=== PATIENT | female | born 1985 | race African-American/Black ===

== ENCOUNTER → 2018-05-28 10:13 | Outpatient (POV) | payer BC, SELFPAY | PROVIDERS: Visit Provider Physician Assistant | DX: Z00.00 Encounter for general adult medical examination without abnormal findings (principal) ==

== ENCOUNTER → 2019-06-07 11:39 | Outpatient (CLI) | payer BC, SELFPAY | PROVIDERS: Visit Provider Nurse Practitioner Obstetrics & Gynecology | DX: N76.4 Abscess of vulva (principal) | CPT/HCPCS: 87070; 87077; 87186; 87205 ==

== ENCOUNTER 2020-11-01 11:51 | Emergency (ER) | payer BC, SELFPAY ==
[2020-11-01 12:00] VITALS: BP 154/98; PULSE 96; RESP 19; TEMP 37; O2SAT 100; BMI 48.5
--- NOTE | 2020-11-01 12:22 | HMH.EDUTC ---
[facility] – [place] Disposition Clinical Impression: Abdominal pain Qualifiers: Abdominal location: unspecified location Qualified Code(s): R10.9 - Unspecified abdominal pain Disposition: Still a Patient Condition on Discharge: Good Referrals: Emily Mosher PA [Primary Care Provider] - Time of Disposition: 12:42 Medical Decision Making - Ron Inquiry Pt receiving controlled substance: No Ron was queried for this patient: No Vital Signs: 11/01/20 12:00 Temperature 98.6 F Temperature Source Oral Pulse Rate [Right Brachial] 96 H Respiratory Rate 19 Blood Pressure [Right Arm] 154/98 H Blood Pressure Mean [Right Arm] 116 Blood Pressure Source [Right Arm] Automatic Cuff Blood Pressure Position [Right Arm] Sitting 02 Sat by Pulse Oximetry 100 Oxygen Delivery Method Room Air - Lab Data Lab results reviewed: Yes: I reviewed the patient's lab results. Medical Decision Narrative: Patient complaining of consistent achy like pain in left upper abdomen area that has continued since she eat yesterday evening and was uncomfortable as she was sitting on exam table Denies pain with palpation states feels like it is deep in there recommended transfer to the Ed for further evaluation and testing and patient agreed, Patient denies history of pain like this before, called Ed spoke with Nikki Coronel RN and patient was moved to room 10 for further evaluation [facility] [place] HPI - General Stated complaint: pain in back and left abdominal area Time Seen by Provider: 11/01/20 12:28 Mode of Arrival: Ambulatory Source of Information: Patient Limitations: No Limitations Description of Symptoms (Recalled from Triage Doc. by RN): PATIENT C/O PAIN IN UPPER LEFT SIDE AND LOWER BACK WITH NAUSEA AFTER EATING SINCE LAST NIGHT. HEENT Symptoms (Recalled from RN notes): No Resp Symptoms (Recalled from RN notes): No Skin Symptoms (Recalled from RN notes): No MS Symptoms (Recalled from RN notes): No Functional Status (Recalled from RN notes): WNL - History of Present Illness Provider Complaint: Patient states that she was eating last night and started having pain in her left upper quad and has continued to have pain and nausea since. State that it is a gurgling like pain and dull ache and is worse when she tries to eat or drink something. States that she was also having achy like pain in her lower back and not sure if they are related and noticed her urine looked dark and wanted to get checked for UTI also State that she has not had pain like this in the past in her abdomen - Related Data Home Medications Medication Instructions Recorded Confirmed levonorgestrel 20 mcg/24 hours (6 INTRAUTERI 11/06/19 09/14/20 yrs) 52 mg intrauterine device Doxycycline Hyclate [Vibramycin 100 mg PO BID 11/01/20 11/01/20 100mg Capsule] Phentermine HCl 37.5 mg PO DAILY 11/01/20 11/01/20 Allergies Allergy/AdvReac Type Severity Reaction Status Date / Time No Known Allergies Allergy Verified 09/14/20 11:17 - Worker's Comp Is this a Worker's Comp case?: No [facility] History - Hepatitis A Screen Drug use history?: No High risk sexual behaviors?: No History of sexually transmitted infection?: No Currently employed?: No Childcare worker?: No Do you have indoor plumbing?: Yes Do you have electricity?: Yes Attestation statement:: This patient has been screened for Hepatitis A risk factors. I have reviewed the patient's past medical history: Yes Laterality Cases: Bilateral: Myringotomy (Ear Tubes), Tonsillectomy Other Surgeries: Yes: No Previous Surgery, Amputation: No Fractures: No - Social History Smoking Status: Current every day smoker Tobacco Type: cigarettes # Packs/Day (cigarettes): 5 Alcohol Intake: never Alcohol Intake Frequency:: a few times a month Substance Use Type: denies use Occupational Status: other Housing: house Household Members: children Family Hx:: Coronary Artery Disease, Hyperlipidemia, Hypertension ROS [place]
--- NOTE | 2020-11-01 12:25 | PC.NURSE ---
PATIENT SENT TO ER PER CASSIE OROZCO APRN FOR FURTHER EVALUATION. REPORTY GIVEN BY Niles OROZCO APRN TO Kyra BOUDREAUX RN
[2020-11-01 12:26] LABS: Apearance,Urine Clear (Clear); Bilirubin,Urine Negative (Negative); Blood, Urine Negative (Negative); Color,Urine Yellow (Yellow); Glucose,Urine (UA) Negative (Negative); Ketones,Urine Negative (Negative); Protein,Urine Negative (Negative); Specific Gravity, Urine 1.025 (1.005-1.030)
[2020-11-01 12:27] LABS: UTC Leukocyte Esterase,Urine Negative (Negative); UTC Nitrate,Urine Negative (Negative); Urobilinogen,Urine 1 EU/dl (0.2)
[2020-11-01 12:38] VITALS: BP 167/96; PULSE 95; RESP 18; TEMP 36.8; O2SAT 99; BMI 48.5
--- NOTE | 2020-11-01 12:46 | HMH.EDGENADL ---
ED Disposition Clinical Impression: Left upper quadrant abdominal pain Disposition: Home, Self-Care Condition on Discharge: Good Instructions: DI for Acute Abdominal Pain Additional Instructions: Pepcid as prescribed. Additional instructions for ABDOMINAL PAIN: See your physician as soon as possible for further evaluation. Return immediately if worsening abdominal pain, vomiting, shortness of breath, fever, vomiting of blood or abdominal distention. Prescriptions: Famotidine [Pepcid 20mg Tablet] 20 mg PO BID 5 Days #10 tab Transmission Status: Pending to [facility] #[id number] Referrals: Emily Mosher PA [Primary Care Provider] - - Critical Care Critical Care Time: No Attestation: On 11/01/20, the high probability of a clinically significant, sudden or life threatening deterioration of the following system(s) required my full and direct attention, intervention and personal management. The time I documented below is in addition to time spent performing reported procedures but includes the following listed in this critical care notation. Medical Decision Making - Ron Inquiry Pt receiving controlled substance: No Vital Signs: 11/01/20 12:00 11/01/20 12:38 11/01/20 12:52 Temperature 98.6 F 98.2 F Temperature Source Oral Oral Pulse Rate [Right Brachial] 96 H 95 H Respiratory Rate 19 18 Blood Pressure [Right Arm] 154/98 H 167/96 H 151/98 H Blood Pressure Mean [Right Arm] 116 119 115 Blood Pressure Source [Right Arm] Automatic Cuff Automatic Cuff Automatic Cuff Blood Pressure Position [Right Arm] Sitting Sitting Sitting 02 Sat by Pulse Oximetry 100 99 99 Oxygen Delivery Method Room Air Room Air Room Air 11/01/20 13:00 Temperature Temperature Source Pulse Rate [Right Brachial] 72 Respiratory Rate Blood Pressure [Right Arm] 154/89 H Blood Pressure Mean [Right Arm] 110 Blood Pressure Source [Right Arm] Automatic Cuff Blood Pressure Position [Right Arm] Sitting 02 Sat by Pulse Oximetry 99 Oxygen Delivery Method Room Air - Lab Data Lab Results 11/01/20 12:03: Urine Color Yellow, Urine Appearance Clear, Urine pH 8.0, Ur Specific [place] 1.025, Urine Protein Negative, Urine Glucose (UA) Negative, Urine Ketones Negative, Urine Blood Negative, Urine Nitrate Negative, Urine Bilirubin Negative, Urine Urobilinogen 1, Ur Leukocyte Esterase Negative 11/01/20 12:14: Urine Color Yellow, Urine Appearance Sl cloudy, Urine pH 8.0, Ur Specific [place] 1.020, Urine Protein Negative, Urine Glucose (UA) Negative, Urine Ketones Negative, Urine Blood Negative, Urine Nitrate Negative, Urine Bilirubin Negative, Urine Urobilinogen 0.2, Ur Leukocyte Esterase Negative, Amorphous Sediment 2+, Urine Bacteria 3+, Urine Mucus 1+ 11/01/20 12:14: Urine HCG, Qual Negative 11/01/20 12:49: WBC 6.1, RBC 4.74, Hgb 14.4, Hct 44.4, MCV 93.6, MCH 30.3, MCHC 32.3, RDW 13.4, Plt Count 232, MPV 8.7, Neut % (Auto) 57.4, Lymph % (Auto) 32.7, Mobile % (Auto) 5.7, Eos % (Auto) 3.3, Baso % (Auto) 0.8, Neut # (Auto) 3.5, Lymph # (Auto) 2.0, Mobile # (Auto) 0.4, Eos # (Auto) 0.2, Baso # (Auto) 0.1 11/01/20 12:49: Sodium 137, Potassium 4.3, Chloride 104, Carbon Dioxide 31 H, Anion Gap 6.3, BUN 12, Creatinine 0.90, Estimated Creat Clear 85, Estimated GFR 71, Est GFR ( Amer) 86, Glucose 118 H, Calcium 10.1, Total Bilirubin 0.4, AST 31, ALT 23, Alkaline Phosphatase 72, Total Protein 8.1, Albumin 4.2, Globulin 3.9 H, Albumin/Globulin Ratio 1.1, Amylase 64, Lipase 71 Result diagrams: 11/01/20 12:49 11/01/20 12:49 Orders (Tests/Meds): ED MEDICATIONS Generic Name Dose Route Start Last Admin Trade Name Freq PRN Reason Stop Dose Admin Sodium Chloride 1,000 mls @ 999 mls/hr 11/01/20 13:00 11/01/20 12:56 Sod Chlor 0.9% 1000ml Bag IV 11/01/20 14:00 999 mls/hr .Q1H1M RADHA Administration Discontinued Medications Generic Name Dose Route Start Last Admin Trade Name Freq PRN Reason Stop Dose Admin Iopamidol 75 ml 0
--- NOTE | 2020-11-01 12:50 | CT_ITS ---
PROCEDURE: CT ABDOMEN PELVIS W CON CLINICAL INDICATION: IV contrast Left upper quadrant pain after eating COMPARISON: No exams were available for comparison TECHNIQUE: IV Contrast: 75ML OPTIRAY 350 Oral Contrast none given Axial images obtained with sagittal and coronal reformats. All CT scans at the facility use one or more dose reduction, viz: automated exposure control, ma/kV adjustment per patient size (including targeted exams where dose is matched to indication, i.e. head), or iterative reconstruction technique. FINDINGS: Lower thorax: The lower lung bartholomew are clear and there is no pleural fluid. ABDOMEN: Liver: The liver is normal size and there are no focal lesions. There are no dilated intrahepatic biliary ducts. Gallbladder: The gallbladder is partially contracted, there are no definite gallstones seen. Pancreas: No masses or peripancreatic fluid collections. Spleen: unremarkable Adrenals: unremarkable Kidneys/ureters: The kidneys are normal in size and show symmetrical function both appearing normal. ABDOMEN & PELVIS: Stomach bowel: The stomach and duodenal C-loop are normal. The small bowel is normal. There is moderate scattered stool and gas seen throughout the colon. There are scattered diverticuli in the transverse and descending colon. There is no evidence of diverticulitis. Peritoneum: No abnormal fluid collections. No obvious inflammatory changes. No free air. Lymph nodes: No enlarged lymph nodes apparent. Vasculature: No evidence of abdominal aortic aneurysm. No retroperitoneal hemorrhage evident. Bones: No acute fracture PELVIS: Reproductive: The uterus is upper limits normal in size with an IUD in place. There is a small 2-3 mm hypodense lesion left adnexa likely a small ovarian cyst. The right ovary is grossly normal. There is no free fluid in the pelvis. Bladder: Partially decompressed, no definite stones seen. Appendix: Unremarkable. No distention or periappendiceal phlegmonous change. IMPRESSION: Mild scattered diverticulosis distal transverse and descending colon without evidence of diverticulitis, borderline enlarged uterus with IUD in place, small left ovarian cyst noted Dictated by: Dr. Amador Banerjee MD 11/01/2020 19:42 Dr. Amador Banerjee MD in [place] 11/01/2020 19:42
[2020-11-01 12:52] VITALS: BP 151/98; O2SAT 99
[2020-11-01 12:57] LABS: Microscopic, Urine URINE MICROSCOPIC (MICROSCOPIC)
[2020-11-01 12:59] LABS: Appearance,Urine SL CLOUDY (Clear); Bilirubin,Urine Negative (Negative); Blood, Urine Negative (Negative); Color,Urine YELLOW (Yellow); Glucose,Urine (UA) Negative (Negative); Ketones,Urine Negative (Negative); Leukocyte Esterase,Urine Negative (Negative); Nitrate,Urine Negative (Negative); Protein,Urine Negative (Negative); Urobilinogen,Urine 0.2 EU/dl (0.2)
[2020-11-01 13:00] VITALS: BP 154/89; PULSE 72; O2SAT 99
[2020-11-01 13:00] LABS: Urine Pregnancy, HCG Qual. Negative (Negative)
[2020-11-01 13:09] LABS: Chloride 104 mmol/L (98-107); Potassium 4.3 mmoL/L (3.5-5.1); Sodium 137 mmol/L (136-145)
[2020-11-01 13:11] LABS: Amylase 64 U/L (30-110)
[2020-11-01 13:12] LABS: Alanine Aminotransferase 23 U/L (12-78); Albumin Level 4.2 g/dl (3.5-5.0); Albumin/Globulin Ratio 1.1 (1.1-1.8); Alkaline Phosphatase 72 U/L (38-126); Anion Gap 6.3 mEq/L (5-15); Aspartate Amino Transferase 31 U/L (14-36); Bilirubin,Total 0.4 mg/dl (0.2-1.3); Blood Urea Nitrogen 12 mg/dl (7-17); Calcium 10.1 mg/dl (8.4-10.2); Carbon Dioxide 31 mmol/L (22.0-30.0); Creatinine Clearance Estimated 85 mL/min (50-200); Estimated Glomerular Filt Rate 71 ml/min (>60); GFR (African American) 86 ML/MIN (>60); Globulin 3.9 g/dL (1.3-3.2); Glucose 118 mg/dl (74-100); Lipase 71 U/L (23-300); Total Protein,Serum 8.1 g/dl (6.3-8.2)
[2020-11-01 13:23] LABS: Basophils # 0.1 K/mm3 (0-0.2); Basophils % 0.8 % (0.1-2.0); Eosinophils # 0.2 K/mm3 (0.0-0.4); Eosinophils % 3.3 % (0.1-12.0); Hematocrit 44.4 % (37.0-47.0); Hemoglobin 14.4 g/dL (12.2-16.2); Lymphocytes % 32.7 % (10-50); Mean Corpuscular HGB Conc 32.3 g/dL (31.8-35.4); Mean Corpuscular Hemoglobin 30.3 pg (27.0-31.2); Mean Corpuscular Volume 93.6 fl (81-99); Mean Platelet Volume 8.7 fl (7.4-10.4); Monocytes # 0.4 K/mm3 (0.1-1.0); Monocytes % 5.7 % (1.7-9.3); Neutrophils # 3.5 K/mm3 (1.8-7.8); Neutrophils % 57.4 % (37.0-80.0); Platelet Count 232 K/mm3 (142-424); Red Blood Count 4.74 M/mm3 (4.20-5.40); Red Cell Distribution Width 13.4 % (11.5-17.5); White Blood Count 6.1 K/mm3 (4.8-10.8)
[2020-11-01 13:53] LABS: Amorphous Sediment,Urine 2+ /lpf; Bacteria,Urine 3+ /lpf; Mucus,Urine 1+ /lpf
[2020-11-01 14:14] VITALS: BP 154/89; PULSE 72; RESP 18; TEMP 36.8; O2SAT 99
== END 2020-11-01 14:14 | disposition home or self-care (01) ==
LOC: UTC 11:54 → ER 12:35
PROVIDERS: Nurse Practitioner; Emergency Provider Emergency Medicine; PCP Physician Assistant
DX: R10.12 Left upper quadrant pain (principal); K57.51 Diverticulosis of both small and large intestine without perforation or abscess with bleeding; F17.210 Nicotine dependence, cigarettes, uncomplicated
CPT/HCPCS: 74177; 80053; 81001; 81003; 81025; 82150; 83690; 85025; 87086; 96365; 99283; Q9967

== ENCOUNTER → 2021-04-27 09:15 | Outpatient (POV) | payer BC, SELFPAY | PROVIDERS: Visit Provider Nurse Practitioner Family | DX: Z00.00 Encounter for general adult medical examination without abnormal findings (principal) ==

== ENCOUNTER 2021-05-14 09:02 | Emergency (ER) | payer BC, SELFPAY ==
[2021-05-14 09:02] VITALS: BP 136/94; PULSE 96; RESP 18; TEMP 36.3; O2SAT 100; BMI 42.3
--- NOTE | 2021-05-14 09:43 | HMH.EDUTC ---
[facility] [place] Disposition Clinical Impression: Exposure to COVID-19 virus, Viral syndrome Disposition: Home, Self-Care Condition on Discharge: Good Instructions: DI for COVID-19 (Suspected or Confirmed ), Preventing the Spread of Coronavirus Discharge Instructions Additional Instructions: Drink plenty of fluids. Take tylenol for pain or fever. Return if you begin to have difficulty breathing. Follow up with your regular doctor. GO TO THE ER FOR ANY WORSENING SYMPTOMS Quarantine until you know the results of your covid-19 test. If it is positive, the health department should call you and give you further instructions about your length of Quarantine and other things. Notify your school or workplace of your results and follow their instructions regarding return to work/school. Prescriptions: Brompheniramine/Pseudoephed/Dm [Bromfed Dm Cough Syrup] 5 ml PO Q6HP PRN #240 ml PRN Reason: Cough Transmission Status: Received by [facility] #[id number] Referrals: Emily Mosher PA [Primary Care Provider] - Forms: Work/School Release Time of Disposition: 09:48 Medical Decision Making - Medical Records Medical records reviewed: No: I reviewed the patient's medical records. - Ron Inquiry Pt receiving controlled substance: No Vital Signs: 05/14/21 09:02 05/14/21 10:01 Temperature 97.4 F L 97.4 F L Temperature Source Temporal Artery Scan Pulse Rate 96 H Pulse Rate [Left Radial] 96 H Respiratory Rate 18 18 Blood Pressure 136/94 H Blood Pressure [Right Arm] 136/94 H Blood Pressure Mean [Right Arm] 108 02 Sat by Pulse Oximetry 100 Oxygen Delivery Method Room Air Room Air Orders (Tests/Meds): ORDERS Category Date Time Status Covid-19 Nasal PCR ([facility]) Routine Lab 05/14/21 09:24 Received [facility] [place] HPI - General Stated complaint: covid test/symptoms Time Seen by Provider: 05/14/21 09:43 - History of Present Illness Provider Complaint: She states that she has been exposed to covid-19 last weekend at her work. She states that over the past 2 days she has began to have a runny nose. She denies any fever/chills/body aches. - Related Data Home Medications Medication Instructions Recorded Confirmed Doxycycline Hyclate [Vibramycin 100 mg PO BID 11/01/20 03/24/21 100mg Capsule] Previous Rx's Medication Instructions Recorded epinastine 0.05 % eye drops 1 drp OPHTHALMIC Q12H #5 ml 02/16/21 ibuprofen 200 mg tablet 200 mg PO ONCE #4 tab 03/23/21 phentermine 37.5 mg tablet 37.5 mg PO DAILY #30 tab 03/24/21 Brompheniramine/Pseudoephed/Dm 5 ml PO Q6HP PRN #240 ml 05/14/21 [Bromfed Dm Cough Syrup] Allergies Allergy/AdvReac Type Severity Reaction Status Date / Time No Known Allergies Allergy Verified 03/24/21 08:58 [facility] History - Hepatitis A Screen Attestation statement:: This patient has been screened for Hepatitis A risk factors. I have reviewed the patient's past medical history: Yes Laterality Cases: Bilateral: Myringotomy (Ear Tubes), Tonsillectomy Other Surgeries: Yes: No Previous Surgery, Amputation: No Fractures: No - Social History Smoking Status: Current every day smoker Tobacco Type: cigarettes # Packs/Day (cigarettes): 1 Alcohol Intake: never Alcohol Intake Frequency:: a few times a month Substance Use Type: denies use Occupational Status: employed Housing: house Household Members: children Family Hx:: Coronary Artery Disease, Hyperlipidemia, Hypertension ROS Obtained: Yes All systems reviewed & no additional complaints - Constitutional Constitutional: Reports system reviewed and no additional complaints, except as docu - Eyes Eyes: Reports system reviewed and no additional complaints, except as docu - ENT Ears, Nose, Mouth, and Throat: Reports system reviewed and no additional complaints, except as docu - Cardiovascular Cardiovascular: Reports system reviewed and no additional complaints, except as docu - Respiratory
[2021-05-14 10:01] VITALS: BP 136/94; PULSE 96; RESP 18; TEMP 36.3; O2SAT 100
--- NOTE | 2021-05-15 19:06 | PC.NURSE ---
PATIENT NOTIFIED OF POSITIVE COVID TEST AT THIS TIME
== END 2021-05-14 10:02 | disposition home or self-care (01) ==
PROVIDERS: Emergency Provider Nurse Practitioner Family; PCP Physician Assistant
DX: B34.9 Viral infection, unspecified (principal); Z20.822 Contact with and (suspected) exposure to COVID-19
CPT/HCPCS: 99202; G0463; U0003

== ENCOUNTER → 2021-05-24 11:10 | Outpatient (CLI) | payer BC, SELFPAY | PROVIDERS: PCP Physician Assistant; Visit Provider Nurse Practitioner | DX: Z20.822 Contact with and (suspected) exposure to COVID-19 (principal) | CPT/HCPCS: C9803; U0003; U0005 ==

== ENCOUNTER 2021-11-20 14:55 | Emergency (ER) | payer BC, SELFPAY ==
[2021-11-20 14:55] VITALS: BP 169/74; PULSE 110; RESP 16; TEMP 38.3; O2SAT 100; BMI 42.9
[2021-11-20 15:27] LABS: UTC Influenza A Antigen Negative (Negative); UTC Influenza B Antigen Negative (Negative)
--- NOTE | 2021-11-20 15:34 | HMH.EDUTC ---
[facility] [place] Clinical Impression: URI (upper respiratory infection) Qualifiers: URI type: unspecified URI Qualified Code(s): J06.9 - Acute upper respiratory infection, unspecified Disposition: Home, Self-Care Condition on Discharge: Good Instructions: Sinusitis, DI for Sinusitis, DI for Fever (Symptom) -- Adult Additional Instructions: *Monitor Temp, Over the counter Motrin or Tylenol as directed/as needed Tylenol every 4 hours and Motrin every 6 hours (as long as your family doctor has told you that you can take it) for fever or pain. and straight to ER if unable to lower temp less than 101.0 after medication given *Warm salt water gargles may help to soothe the throat *Throat Lozenges *Warm fluids like tea with honey may help to soothe the throat *Sleep elevated *Humidifier/Vaporizer Your throat swab was sent for culture. Those results are typically sent to your primary care. Be sure to follow up in 2-3 days with your family doctor/primary care physician if no improvement so they can review those result and treat if necessary. If you don?t have a primary care doctor, I recommend you get one but in the mean time, you will have to return to a walk in clinic Follow up IMMEDIATELY for new or worsening symptoms or no Noticeable improvement over the next 48-72 hours. 911 for difficulty breathing or swallowing You had an Upper Respiratory Panel today done in the [facility] Your results should be available in the next 4-6 hours on the [facility] [employer] [facility] Prescriptions: methylPREDNISolone [Medrol 4mg tab] 4 mg PO DIRECTED #21 tab Transmission Status: Pending to [facility] # Azithromycin [Z-Dustin 250mg Tab] 250 mg PO DIRECTED #6 tab Transmission Status: Pending to [facility] # Referrals: Emily Mosher PA [Primary Care Provider] - As needed Forms: Work/School Release Time of Disposition: 16:11 Medical Decision Making - Ron Inquiry Pt receiving controlled substance: No Ron was queried for this patient: No Vital Signs: 11/20/21 14:55 Temperature 101 F H Temperature Source Oral Pulse Rate [Right] 110 H Respiratory Rate 16 Blood Pressure [Right Arm] 169/74 H Blood Pressure Mean [Right Arm] 105 Blood Pressure Source [Right Arm] Automatic Cuff Blood Pressure Position [Right Arm] Sitting 02 Sat by Pulse Oximetry 100 Oxygen Delivery Method Room Air - Lab Data Lab results reviewed: Yes: I reviewed the patient's lab results. Lab Results 11/20/21 15:11: Influenza Type A Ag Negative, Influenza Type B Ag Negative 11/20/21 15:54: Strep Scn Rapid Clinic Negative Orders (Tests/Meds): ED MEDICATIONS Discontinued Medications Generic Name Dose Route Start Last Admin Trade Name Na PRN Reason Stop Dose Admin Ibuprofen 800 mg 11/20/21 15:41 11/20/21 16:07 Ibuprofen 400 Mg Tablet PO 11/20/21 15:42 800 mg ONCE ONE Administration ORDERS Category Date Time Status Full Resp Panel w/COVID ([facility]) Routine Lab 11/20/21 15:56 Ordered Strep Screen Confirmation Stat Micro 11/20/21 15:54 Received [facility] UTC HPI - General Stated complaint: fever,sore throat,achey,headache,congestion Time Seen by Provider: 11/20/21 15:40 Mode of Arrival: Ambulatory Source of Information: Patient Limitations: No Limitations HEENT Symptoms (Recalled from RN notes): Yes (fever, chills, body a ches) Resp Symptoms (Recalled from RN notes): No Skin Symptoms (Recalled from RN notes): No MS Symptoms (Recalled from RN notes): No Functional Status (Recalled from RN notes): na - History of Present Illness Provider Complaint: Patient statse that she has been having sinus pain and pressure, sore throat, headaches, body aches, chills and fever State that it come on suddenly yesterday and continued to get worse last night States that today she was still feeling tired and achy and had a fever so she came in to get checked out - Related Data Home Medications Medication Instruc
[2021-11-20 15:57] LABS: UTC Strep Screen (Rapid) Negative (Negative)
[2021-11-20 16:14] VITALS: BP 140/60; PULSE 94; RESP 16; TEMP 37.7; O2SAT 98
[2021-11-20 16:26] LABS: Adenovirus,PCR Not Detected (NotDetected); Bordetella Pertussis Not Detected (NotDetected); Chlamydophila Pneumoniae, PCR Not Detected (NotDetected); Coronavirus 229E Not Detected (NotDetected); Coronavirus NL63 Not Detected (NotDetected); Coronavirus OC43 Not Detected (NotDetected); Coronovirus HKU1,PCR Not Detected (NotDetected); Human Metapneumovirus Not Detected (NotDetected); Influenza A, PCR Not Detected (NotDetected); Influenza AH1, 2009 Not Detected (NotDetected); Influenza AH1, PCR Not Detected (NotDetected); Influenza AH3,PCR Not Detected (NotDetected); Influenza B, PCR Not Detected (NotDetected); Mycoplasma Pneumoniae, PCR Not Detected (NotDetected); Parainfluenza 1, PCR Not Detected (NotDetected); Parainfluenza 2, PCR Not Detected (NotDetected); Parainfluenza 3, PCR Not Detected (NotDetected); Parainfluenza 4, PCR Not Detected (NotDetected); Respiratory Syncytial Virus Not Detected (NotDetected); Rhinovirus/Enterovirus Not Detected (NotDetected)
[2021-11-20 18:55] LABS: Coronavirus 19, PCR Detected (NotDetected)
== END 2021-11-20 16:17 | disposition home or self-care (01) ==
PROVIDERS: Emergency Provider Nurse Practitioner; PCP Physician Assistant
DX: J02.9 Acute pharyngitis, unspecified (principal); J06.9 Acute upper respiratory infection, unspecified; R51.9 Headache, unspecified; Z20.822 Contact with and (suspected) exposure to COVID-19; M54.32 Sciatica, left side; M79.10 Myalgia, unspecified site; F17.210 Nicotine dependence, cigarettes, uncomplicated; Z79.52 Long term (current) use of systemic steroids; Z79.899 Other long term (current) drug therapy; Z82.49 Family history of ischemic heart disease and other diseases of the circulatory system; Z83.438 Family history of other disorder of lipoprotein metabolism and other lipidemia
CPT/HCPCS: 87581; 87632; 87798; 87804; 87880; 99213; C9803; G0463; U0003; U0005

== ENCOUNTER → 2022-03-24 08:36 | Outpatient (CLI) | payer BC, SELFPAY ==
[2022-03-24 09:02] LABS: Basophils # 0.1 K/mm3 (0-0.2); Basophils % 1.9 % (0.1-2.0); Eosinophils # 0.3 K/mm3 (0.0-0.4); Eosinophils % 6.7 % (0.1-12.0); Hematocrit 55.7 % (37.0-47.0); Lymphocytes # 1.5 K/mm3 (0.7-4.5); Mean Corpuscular HGB Conc 30.4 g/dL (31.8-35.4); Mean Corpuscular Hemoglobin 32.4 pg (27.0-31.2); Mean Corpuscular Volume 106.6 fl (81-99); Mean Platelet Volume 9.4 fl (7.4-10.4); Monocytes # 0.2 K/mm3 (0.1-1.0); Monocytes % 5.2 % (1.7-9.3); Neutrophils # 2.4 K/mm3 (1.8-7.8); Neutrophils % 52.2 % (37.0-80.0); Platelet Count 213 K/mm3 (142-424); Red Blood Count 5.23 M/mm3 (4.20-5.40); Red Cell Distribution Width 13.9 % (11.5-17.5); White Blood Count 4.5 K/mm3 (4.8-10.8)
[2022-03-24 09:42] LABS: Alanine Aminotransferase 26 U/L (12-78); Albumin Level 3.9 g/dl (3.5-5.0); Albumin/Globulin Ratio 1.3 (1.1-1.8); Alkaline Phosphatase 81 U/L (38-126); Anion Gap 12.3 mEq/L (5-15); Aspartate Amino Transferase 31 U/L (14-36); Bilirubin,Total 0.2 mg/dl (0.2-1.3); Blood Urea Nitrogen 17 mg/dl (7-17); Calcium 9.5 mg/dl (8.4-10.2); Carbon Dioxide 25 mmol/L (22.0-30.0); Chloride 109 mmol/L (98-107); Chol/HDL Ratio 3.1 (1-3.5); Cholesterol 209 mg/dl (140-200); Estimated Glomerular Filt Rate 71 ml/min (>60); GFR (African American) 86 ML/MIN (>60); Globulin 3.1 g/dL (1.3-3.2); Glucose 80 mg/dl (74-100); HDL Cholesterol 67 mg/dl (40-60); Potassium 4.3 mmoL/L (3.5-5.1); Sodium 142 mmol/L (136-145); Triglycerides 142 mg/dl (30-150); VLDL Cholesterol 28 mg/dL (0-40)
[2022-03-24 09:53] LABS: Direct LDL Cholesterol 111.15 mg/dL (100-129)
[2022-03-24 10:05] LABS: 25-OH Vitamin D, Total 47.2 ng/mL (30-100)
== END ==
PROVIDERS: PCP Physician Assistant; Visit Provider Physician Assistant
DX: Z00.00 Encounter for general adult medical examination without abnormal findings (principal); E66.9 Obesity, unspecified; Z68.41 Body mass index [BMI] 40.0-44.9, adult; Z79.899 Other long term (current) drug therapy
CPT/HCPCS: 36415; 80053; 80061; 82306; 84443; 85025

== ENCOUNTER 2022-04-10 22:18 | Emergency (ER) | payer BC, SELFPAY ==
[2022-04-10 22:19] VITALS: BP 176/108; PULSE 105; RESP 20; TEMP 36.9; O2SAT 97; BMI 40.1
--- NOTE | 2022-04-10 22:51 | HMH.EDGENADL ---
ED Disposition Clinical Impression: IUD mechanical complication Qualifiers: Mechanical complication type: displacement Encounter type: initial encounter Qualified Code(s): T83.32XA - Displacement of intrauterine contraceptive device, initial encounter Disposition: Home, Self-Care Condition on Discharge: Good Instructions: DI for Intrauterine Device Removal Additional Instructions: You were evaluated in the emergency department today for IUD issues. Please follow-up with gynecology as soon as possible. Return to the emergency department for any new or worsening symptoms, such as heavy bleeding, pain, or other concerns. Referrals: Emily Mosher PA [Primary Care Provider] - - Critical Care Critical Care Time: No Attestation: On 04/10/22, the high probability of a clinically significant, sudden or life threatening deterioration of the following system(s) required my full and direct attention, intervention and personal management. The time I documented below is in addition to time spent performing reported procedures but includes the following listed in this critical care notation. Medical Decision Making - Ron Inquiry Pt receiving controlled substance: No Vital Signs: 04/10/22 22:19 04/11/22 01:25 Temperature 98.4 F 98.0 F Temperature Source Oral Oral Pulse Rate 82 Pulse Rate [Right] 105 H Respiratory Rate 20 16 Blood Pressure 160/98 H Blood Pressure [Right Arm] 176/108 H Blood Pressure Mean [Right Arm] 130 Blood Pressure Source [Right Arm] Automatic Cuff 02 Sat by Pulse Oximetry 97 Oxygen Delivery Method Room Air Room Air - Lab Data Lab Results 04/11/22 00:27: Urine Color Yellow, Urine Appearance Clear, Urine pH 6.0, Ur Specific [place] <= 1.005, Urine Protein Negative, Urine Glucose (UA) Negative, Urine Ketones Negative, Urine Blood Negative, Urine Nitrate Negative, Urine Bilirubin Negative, Urine Urobilinogen 0.2, Ur Leukocyte Esterase Negative, Ur Squamous Epith Cells 3-5 04/11/22 00:27: Urine HCG, Qual Negative Orders (Tests/Meds): ED MEDICATIONS Discontinued Medications Generic Name Dose Route Start Last Admin Trade Name Freq PRN Reason Stop Dose Admin Acetaminophen 1,000 mg 04/10/22 23:33 04/11/22 01:24 Acetaminophen 500mg Tab PO 04/10/22 23:34 1,000 mg ONCE ONE Administration Ibuprofen 800 mg 04/10/22 23:33 04/11/22 01:24 Ibuprofen 600 Mg Tablet PO 04/10/22 23:34 800 mg ONCE ONE Administration Medical Decision Narrative: In summary, this patient is a 37-year-old female who presents to the emergency department with concern that her IUD is falling out. She has also had lower abdominal cramping. Differential diagnoses include IUD displacement, , urinary tract infection, ovarian cyst. The patient went to the bathroom to urinate shortly after arrival to the hospital. Her IUD fell completely out at this time. After this, her cramping significantly improved and she now complains of significant pain. She states that she did not have any increase in bleeding afterwards and is still only having light spotting at this time. She is currently comfortable with no concerns. She already has [employer] follow-up arranged. Urinalysis negative for infection and urinary test negative. I offered pelvic exam to the patient to assess her cervix to make sure she has no lacerations or obvious trauma, but she declined stating that she is feeling fine and will come back to the emergency department should anything worsen. I gave her strict return precautions, and she was discharged in stable condition with plan for close outpatient follow-up. General Adult HPI - General Stated complaint: IUD is falling out Time Seen by Provider: 04/10/22 22:30 - History of Present Illness HPI narrative: This patient is a 37-year-old female presenting to the emergency department for evaluation because she is concerned that her IUD that she has had for 2 years is
--- NOTE | 2022-04-11 00:15 | PC.NURSE ---
at bedside discussing POC with patient. MD came out and advised we needed urine and pt did not want to have pelvic exam now. MD was ok with this. UA collected and sent to lab. Went in and spoke with pt, she had no needs at this time.
--- NOTE | 2022-04-11 00:24 | PC.NURSE ---
pt came and got me and advised when she had ambulated to the restroom her IUD had completely come out. Went into restroom with patient and the IUD was laying in the sink, it appeared to be completely intact with the strings attached. Pt advised she was in no pain and felt ok she was just a little freaked out. I placed the IUD into basin and took it back into the room with patient so MD could examine it. Notified
[2022-04-11 00:41] LABS: Microscopic, Urine URINE MICROSCOPIC (MICROSCOPIC)
[2022-04-11 00:54] LABS: Appearance,Urine CLEAR (Clear); Bilirubin,Urine Negative (Negative); Blood, Urine Negative (Negative); Color,Urine YELLOW (Yellow); Glucose,Urine (UA) Negative (Negative); Ketones,Urine Negative (Negative); Leukocyte Esterase,Urine Negative (Negative); Nitrate,Urine Negative (Negative); Protein,Urine Negative (Negative); Specific Gravity, Urine <= 1.005 (1.005-1.030); Urobilinogen,Urine 0.2 EU/dl (0.2)
[2022-04-11 00:57] LABS: Urine Pregnancy, HCG Qual. Negative (Negative)
[2022-04-11 01:25] VITALS: BP 160/98; PULSE 82; RESP 16; TEMP 36.7; O2SAT 98
== END 2022-04-11 01:33 | disposition home or self-care (01) ==
PROVIDERS: Emergency Provider Emergency Medicine; PCP Physician Assistant
DX: T83.32XA Displacement of intrauterine contraceptive device, initial encounter (principal); Z72.0 Tobacco use; I10 Essential (primary) hypertension
CPT/HCPCS: 81001; 81025; 99282

== ENCOUNTER → 2023-05-12 23:36 | Outpatient (CLI) | payer BC, SELFPAY | PROVIDERS: PCP Physician Assistant; Visit Provider Student in an Organized Health Care Education/Training Program | DX: R35.0 Frequency of micturition (principal) | CPT/HCPCS: 87086 ==

== ENCOUNTER 2023-06-07 13:30 | Emergency (ER) | payer BC, SELFPAY ==
[2023-06-07 14:10] VITALS: PULSE 89; RESP 18; TEMP 36.8; O2SAT 100; BMI 41.5
[2023-06-07 14:18] LABS: Microscopic, Urine URINE MICROSCOPIC (MICROSCOPIC)
[2023-06-07 14:19] LABS: Appearance,Urine CLEAR (Clear); Bilirubin,Urine Negative (Negative); Blood, Urine Negative (Negative); Color,Urine YELLOW (Yellow); Glucose,Urine (UA) Negative (Negative); Ketones,Urine TRACE (Negative); Leukocyte Esterase,Urine Negative (Negative); Nitrate,Urine Negative (Negative); PH,Urine 6.5 (5.0-8.5); Protein,Urine Negative (Negative)
--- NOTE | 2023-06-07 14:31 | EXP.UTC ---
Discharge Plan Disposition Patient Disposition: Home, Self-Care Condition: Good Prescriptions Prescriptions: New esomeprazole magnesium [Nexium] 20 mg capsule,delayed release(DR/EC) 20 mg PO .qhs Qty: 14 0RF No Action adapalene [Differin] 0.1 % cream 1 applic topical HS Qty: 45 2RF lisinopril 10 mg tablet See Rx Instructions .ROUTE .COMPLEX Rx Instructions: TAKE 1 TABLET BY MOUTH DAILY minocycline 100 mg tablet See Rx Instructions .ROUTE .COMPLEX Rx Instructions: TAKE 1 TABLET BY MOUTH TWICE DAILY Referrals Follow up/Referrals: Emily Mosher PA [Primary Care Provider] - See instructions Activity Restrictions/Add. Instructions Additional Instructions/Restrictions: follow up with pcp for more work up tomorrow as scheduled if symptoms worsen return or be seen in ed Clinical Impressions Clinical Impression: Gastroesophageal reflux disease Qualifiers: Esophagitis presence: without esophagitis Qualified Code(s): K21.9 - Gastro-esophageal reflux disease without esophagitis Abdominal pain Qualifiers: Abdominal location: left upper quadrant Qualified Code(s): R10.12 - Left upper quadrant pain Instructions Patient Instructions: GERD Diet, DI for Gastroesophageal Reflux Disease (GERD), Acute Abdominal Pain Discharge ED Provider: Halley ([facility])[place] [facility] [place] [facility] [place] General Stated complaint: Lt side pressure Mode of Arrival: Ambulatory Source of Information: Patient Limitations: No Limitations Time Seen by Provider: 06/07/23 14:32 Description of Symptoms (Recalled from Triage Doc. by RN): Lots of pressure on left side under rib. This has been going on for the last couple weeks. She states that it doesn't move anywhere. She states that she still has gall bladder, and appendex. HEENT Symptoms (Recalled from RN notes): No Resp Symptoms (Recalled from RN notes): No Skin Symptoms (Recalled from RN notes): No MS Symptoms (Recalled from RN notes): No Functional Status (Recalled from RN notes): n/a History of Present Illness Provider Complaint: 38 yr old female presents for Lots of pressure on left side under rib. This has been going on for the last couple weeks. She states that it doesn't move anywhere and comes and goes. reports alot of gerd Related Data Home Medications Medication Instructions Recorded Confirmed lisinopril 10 mg tablet See Rx Instructions .Route 06/07/23 06/07/23 .COMPLEX blood pressure minocycline 100 mg tablet See Rx Instructions .Route 06/07/23 06/07/23 .COMPLEX acne Previous Rx's Medication Instructions Recorded adapalene 0.1 % topical cream 1 applic topical HS #45 grams 07/18/22 (Differin) esomeprazole magnesium 20 mg 20 mg PO .qhs #14 caps 06/07/23 capsule,delayed release (Nexium) Allergies Allergy/AdvReac Type Severity Reaction Status Date / Time No Known Allergies Allergy Verified 06/07/23 14:27 Worker's Comp Is this a Worker's Comp case?: No [facility] Disclaimer: The information contained in this section may have been updated after the patient was seen, as this information can be updated by other users. Medical History , [employer]) BMI 40.0-44.9, adult IUD mechanical complication Left sided sciatica Seborrheic dermatitis of scalp Social History , [employer]) Smoking Status: Current every day smoker tobacco type: cigarettes packs per day: 1 alcohol intake: never substance use type: denies use current occupational status: employed Travel in the last 8 weeks: None household members: children housing: house ROS Obtained: Yes All systems reviewed & no additional complaints except as documented Constitutional Constitutional: Reports system reviewed and no additional complaints, except as documented Eyes Eyes: Reports system reviewed and no additional complaints, except as documented ENT Ears, Nose, M
[2023-06-07 14:47] LABS: MANUAL DIFFERENTIAL MANUAL DIFFERENTIAL (MANUAL DIFF)
[2023-06-07 15:00] LABS: Alanine Aminotransferase 55 U/L (12-78); Albumin/Globulin Ratio 1.1 (1.1-1.8); Alkaline Phosphatase 64 U/L (38-126); Anion Gap 11.1 mEq/L (5-15); Aspartate Amino Transferase 58 U/L (14-36); Bilirubin,Direct 0.2 mg/dl (0.0-0.4); Bilirubin,Indirect 0.1 mg/dL (0.0-0.9); Bilirubin,Total 0.3 mg/dl (0.2-1.3); Bilirubin,Unconjugated 0.1 mg/dL (0.0-1.1); Blood Urea Nitrogen 15 mg/dl (7-17); Carbon Dioxide 24 mmol/L (22.0-30.0); Chloride 107 mmol/L (98-107); Creatinine Clearance Estimated 62 mL/min (50-200); Estimated Glomerular Filt Rate 50 ml/min (>60); GFR (African American) 61 ML/MIN (>60); Globulin 3.6 g/dL (1.3-3.2); Glucose 111 mg/dl (74-100); Potassium 4.1 mmoL/L (3.5-5.1); Sodium 138 mmol/L (136-145); Total Protein,Serum 7.6 g/dl (6.3-8.2)
[2023-06-07 15:04] LABS: Basophils % 0.3 % (0.1-2.0); Eosinophils # 0.2 K/mm3 (0.0-0.4); Hematocrit 44.4 % (37.0-47.0); Hemoglobin 13.8 g/dL (12.2-16.2); Lymphocytes # 1.1 K/mm3 (0.7-4.5); Lymphocytes % 25.2 % (10-50); Mean Corpuscular HGB Conc 31.1 g/dL (31.8-35.4); Mean Corpuscular Hemoglobin 31.7 pg (27.0-31.2); Mean Platelet Volume 8.2 fl (7.4-10.4); Monocytes # 0.3 K/mm3 (0.1-1.0); Monocytes % 6.4 % (1.7-9.3); Neutrophils # 2.8 K/mm3 (1.8-7.8); Platelet Count 195 K/mm3 (142-424); Red Blood Count 4.36 M/mm3 (4.20-5.40); Red Cell Distribution Width 14.5 % (11.5-17.5); White Blood Count 4.4 K/mm3 (4.8-10.8)
[2023-06-07 15:21] LABS: Bacteria,Urine Trace /lpf
[2023-06-07 15:22] LABS: Monoscreen (Rapid) Negative (Negative)
[2023-06-07 15:38] LABS: Creatine Kinase 61 U/L (30-135)
[2023-06-07 15:48] LABS: CKMB Relative Index 0.7 U/L (0-4.0); Creatine Kinase MB 0.4 ng/ml (0.0-2.03)
[2023-06-07 15:49] VITALS: BP 0/0; PULSE 89; RESP 18; TEMP 36.8; O2SAT 100
[2023-06-07 15:55] LABS: Troponin I < 0.01 ng/ml (0.00-0.034)
[2023-06-07 16:36] LABS: Eosinophils % 7 % (0-3); Lymphocytes % 24 % (10-50); Monocytes % 6 % (2-9); Neutrophils % 63 % (42-76); Total Cells Counted 100
[2023-06-07 16:37] LABS: Macrocytosis 1+; Platelet Estimate Normal
[2023-06-09 16:56] LABS: Peripheral Smear Review Scanned Result
== END 2023-06-07 15:49 | disposition home or self-care (01) ==
LOC: UTC 13:32 → ER 14:51 → UTC 14:51
PROVIDERS: Emergency Provider Nurse Practitioner Family; PCP Physician Assistant
DX: R10.12 Left upper quadrant pain (principal); K21.9 Gastro-esophageal reflux disease without esophagitis; F17.210 Nicotine dependence, cigarettes, uncomplicated; Z68.41 Body mass index [BMI] 40.0-44.9, adult
CPT/HCPCS: 80053; 80076; 81001; 82550; 82553; 84484; 85007; 85014; 85018; 85048; 85049; 86318; 86663; 87086; 87088; 87186; 99212; 99214; G0463

== ENCOUNTER → 2023-06-14 12:00 | Outpatient (CLI) | payer BC, SELFPAY ==
[2023-06-14 18:32] LABS: Basophils # 0.1 K/mm3 (0-0.2); Basophils % 0.8 % (0.1-2.0); Eosinophils # 0.3 K/mm3 (0.0-0.4); Eosinophils % 4.4 % (0.1-12.0); Hematocrit 44.7 % (37.0-47.0); Lymphocytes # 1.6 K/mm3 (0.7-4.5); Lymphocytes % 27.8 % (10-50); Mean Corpuscular HGB Conc 31.4 g/dL (31.8-35.4); Mean Corpuscular Hemoglobin 31.8 pg (27.0-31.2); Mean Corpuscular Volume 101.2 fl (81-99); Mean Platelet Volume 10.2 fl (7.4-10.4); Monocytes # 0.4 K/mm3 (0.1-1.0); Monocytes % 6.2 % (1.7-9.3); Neutrophils # 3.6 K/mm3 (1.8-7.8); Neutrophils % 60.8 % (37.0-80.0); Platelet Count 262 K/mm3 (142-424); Red Blood Count 4.42 M/mm3 (4.20-5.40); Red Cell Distribution Width 14.4 % (11.5-17.5); White Blood Count 5.9 K/mm3 (4.8-10.8)
[2023-06-14 18:54] LABS: Alanine Aminotransferase 48 U/L (12-78); Albumin Level 3.9 g/dl (3.5-5.0); Albumin/Globulin Ratio 1.2 (1.1-1.8); Alkaline Phosphatase 71 U/L (38-126); Anion Gap 13.3 mEq/L (5-15); Aspartate Amino Transferase 44 U/L (14-36); Bilirubin,Total 0.3 mg/dl (0.2-1.3); Blood Urea Nitrogen 14 mg/dl (7-17); Calcium 9.3 mg/dl (8.4-10.2); Carbon Dioxide 25 mmol/L (22.0-30.0); Chloride 105 mmol/L (98-107); Estimated Glomerular Filt Rate 56 ml/min (>60); GFR (African American) 67 ML/MIN (>60); Globulin 3.3 g/dL (1.3-3.2); Glucose 122 mg/dl (74-100); Potassium 4.3 mmoL/L (3.5-5.1); Sodium 139 mmol/L (136-145); Total Protein,Serum 7.2 g/dl (6.3-8.2)
[2023-06-17 00:07] LABS: Neisseria gonorrhoeae, NAA Negative (Negative)
== END ==
PROVIDERS: PCP Physician Assistant; Visit Provider Nurse Practitioner Family
DX: R10.9 Unspecified abdominal pain (principal); M54.50 Low back pain, unspecified; N39.0 Urinary tract infection, site not specified; K21.9 Gastro-esophageal reflux disease without esophagitis; R30.0 Dysuria
CPT/HCPCS: 80053; 85025; 87086; 87491; 87591

== ENCOUNTER → 2023-07-03 13:20 | Outpatient (CLI) | payer BC, SELFPAY ==
--- NOTE | 2023-07-03 13:21 | CT_ITS ---
FINAL REPORT TECHNIQUE: Axial images through the abdomen and pelvis were performed without contrast.This study was performed with techniques to keep radiation doses as low as reasonably achievable, (ALARA). Individualized dose reduction techniques using automated exposure control or adjustment of mA and/or kV according to the patient's size were employed. CLINICAL HISTORY: abd pain, UTI, EBV FINDINGS: ABDOMEN: The lung bases are clear. The heart size is normal. Limited images of the liver are unremarkable. Gallbladder is partially collapsed. The spleen is normal. No adrenal mass is identified. The aorta is normal in caliber. There is no significant free fluid or adenopathy. There is no nephrolithiasis. There is no hydronephrosis. PELVIS: The appendix is not identified. The urinary bladder is unremarkable. There is no significant free fluid or adenopathy. Bilateral L5 pars defects are noted. IMPRESSION: No hydronephrosis or nephrolithiasis. Reviewed, Interpreted and Dictated by Paco Sneed III, MD Transcribed by Jackie Segovia Authenticated and [facility]
== END ==
LOC: RAD 13:21
PROVIDERS: PCP Physician Assistant; Visit Provider Nurse Practitioner Family
DX: R10.9 Unspecified abdominal pain (principal); B27.90 Infectious mononucleosis, unspecified without complication; N39.0 Urinary tract infection, site not specified
CPT/HCPCS: 74176

== ENCOUNTER 2023-08-11 15:00 | Outpatient (RCR) | payer BC, SELFPAY | END 2023-08-11 16:00 | disposition home or self-care (01) | LOC: PT 15:00 | PROVIDERS: PCP Physician Assistant; Visit Provider Student in an Organized Health Care Education/Training Program | DX: M54.16 Radiculopathy, lumbar region (principal); M54.50 Low back pain, unspecified | CPT/HCPCS: 97010; 97014; 97110; 97163; G0283 ==

== ENCOUNTER 2023-09-15 09:38 | Outpatient (CLI) | payer BC, SELFPAY ==
[2023-09-15 18:57] LABS: Basophils # 0.1 K/mm3 (0-0.2); Eosinophils # 0.2 K/mm3 (0.0-0.4); Eosinophils % 5.1 % (0.1-12.0); Hematocrit 43.3 % (37.0-47.0); Hemoglobin 14.2 g/dL (12.2-16.2); Lymphocytes # 1.6 K/mm3 (0.7-4.5); Lymphocytes % 32.9 % (10-50); Mean Corpuscular HGB Conc 32.8 g/dL (31.8-35.4); Mean Corpuscular Hemoglobin 32.8 pg (27.0-31.2); Mean Corpuscular Volume 99.9 fl (81-99); Mean Platelet Volume 10.3 fl (7.4-10.4); Monocytes # 0.4 K/mm3 (0.1-1.0); Monocytes % 7.4 % (1.7-9.3); Neutrophils # 2.6 K/mm3 (1.8-7.8); Neutrophils % 53.6 % (37.0-80.0); Platelet Count 215 K/mm3 (142-424); Red Blood Count 4.33 M/mm3 (4.20-5.40); White Blood Count 4.8 K/mm3 (4.8-10.8)
[2023-09-15 19:05] LABS: Alanine Aminotransferase 35 U/L (12-78); Albumin/Globulin Ratio 1.3 (1.1-1.8); Alkaline Phosphatase 70 U/L (38-126); Anion Gap 7.1 mEq/L (5-15); Aspartate Amino Transferase 38 U/L (14-36); Bilirubin,Total 0.3 mg/dl (0.2-1.3); Blood Urea Nitrogen 16 mg/dl (7-17); Calcium 8.7 mg/dl (8.4-10.2); Carbon Dioxide 29 mmol/L (22.0-30.0); Chloride 106 mmol/L (98-107); Cholesterol 226 mg/dl (140-200); Estimated Glomerular Filt Rate 70 ml/min (>60); GFR (African American) 85 ML/MIN (>60); Globulin 3.1 g/dL (1.3-3.2); Glucose 92 mg/dl (74-100); HDL Cholesterol 76 mg/dl (40-60); Potassium 4.1 mmoL/L (3.5-5.1); Sodium 138 mmol/L (136-145); Total Protein,Serum 7.1 g/dl (6.3-8.2); Triglycerides 108 mg/dl (30-150); VLDL Cholesterol 22 mg/dL (0-40)
[2023-09-15 19:17] LABS: Direct LDL Cholesterol 109.88 mg/dL (100-129)
[2023-09-15 19:24] LABS: 25-OH Vitamin D, Total 31.2 ng/mL (30-100)
[2023-09-15 19:36] LABS: Thyroid Stimulating Hormone 1.02 uIU/mL (0.465-4.68)
[2023-09-15 19:49] LABS: Hemoglobin A1C 5.3 % (4.0-6.0)
== END 2023-09-15 23:59 ==
LOC: LAB.DROPOF 09-16 09:38
PROVIDERS: PCP Physician Assistant; Visit Provider Physician Assistant
DX: I10 Essential (primary) hypertension (principal); E66.9 Obesity, unspecified; Z68.41 Body mass index [BMI] 40.0-44.9, adult
CPT/HCPCS: 80053; 80061; 82306; 83036; 84443; 85025

== ENCOUNTER 2025-04-15 10:55 | Outpatient (CLI) | payer BC, SELFPAY ==
--- NOTE | 2025-04-15 11:00 | US_ITS ---
PROCEDURE: US TRANSVAGINAL CLINICAL INDICATION: Abnormal Uterine Bleeding COMPARISON: CT CT ABDOMEN PELVIS WO CON from 07/03/2023 FINDINGS: Transvaginal and transabdominal sonographic images of the pelvis were obtained. UTERUS: 7.3cm x 4.7 cmx 3.8 cm anteverted with a combined endometrial thickness of 4.9mm. Fibroid 1. Anterior fibroid measuring 1.8 cm x 1.9 cm x 2.4 cm. Fibroid 2. Fundus measuring 1.8 cm x 1.3 cm x 2.0 cm. Fibroid 3. Anterior measuring 0.95 cm x 0.86 cm x 0.84 cm LEFT OVARY: 2.8 cmx2.2cmx1.5cm with a volume of 4.6ml. Difficult to visualize transvaginally but seen transabdominally and appears normal. RIGHT OVARY: 2.8 cmx 2.5 cmx1.7 cm with a volume of 6.2ml. There is a follicle measuring 1.5 cm x 1.0 cm x 1.2 cm. Both ovaries are seen and appear normal. Doppler flow to both ovaries are seen. There is no fluid in the cul-de-sac. IMPRESSION: 1. Anteverted uterus normal in shape and size. The endometrium is thin and measures 4.9 mm. 2. There are at least 3 fibroids within the uterus measuring 2.4 cm, 2.0 cm and 0.95 cm. 3. Both ovaries are seen and appear normal. The left ovary was more difficult to see but was seen transabdominally. There is a follicle in the right ovary. 4. No fluid in the cul-de-sac. Dictated by: Cory Mina MD 04/15/2025 15:48 Cory Mina MD in OV 04/15/2025 15:48
== END 2025-04-15 23:59 | disposition home or self-care (01) ==
LOC: RAD 10:56
PROVIDERS: PCP Physician Assistant; Visit Provider Obstetrics & Gynecology
DX: D25.9 Leiomyoma of uterus, unspecified (principal)
CPT/HCPCS: 76830

== ENCOUNTER 2025-05-07 14:58 | Outpatient (CLI) | payer BC, SELFPAY ==
[2025-05-07 19:28] LABS: Thyroid Stimulating Hormone 0.46 uIU/mL (0.465-4.68)
== END 2025-05-07 23:59 | disposition home or self-care (01) ==
LOC: LAB 14:59
PROVIDERS: PCP Physician Assistant; Visit Provider Obstetrics & Gynecology
DX: N93.9 Abnormal uterine and vaginal bleeding, unspecified (principal); N92.0 Excessive and frequent menstruation with regular cycle; Z68.41 Body mass index [BMI] 40.0-44.9, adult
CPT/HCPCS: 36415; 84443

== ENCOUNTER 2025-06-16 10:48 | Outpatient (CLI) | payer BC, SELFPAY ==
[2025-06-16 12:15] LABS: Free Thyroxine Index 2.9 ug/dL (5.93-13.13); T4 (Thyroxine) 8.3 ug/dl (5.53-11.0); Triiodothryronine (T3) Uptake 35 % (23.5-40.5)
[2025-06-16 12:24] LABS: Thyroid Stimulating Hormone < 0.02 uIU/mL (0.465-4.68)
[2025-06-16 13:48] LABS: Thyroid Stimulating Hormone < 0.02 uIU/mL (0.465-4.68)
== END 2025-06-16 23:59 | disposition home or self-care (01) ==
LOC: LAB 10:49
PROVIDERS: PCP Physician Assistant; Visit Provider Obstetrics & Gynecology
DX: R79.89 Other specified abnormal findings of blood chemistry (principal)
CPT/HCPCS: 36415; 84436; 84443; 84479

== ENCOUNTER 2025-06-19 12:21 | Outpatient (CLI) | payer BC, SELFPAY ==
[2025-06-23 16:12] LABS: Renin Activity, Plasma 0.366 ng/mL/hr (0.167-5.380)
== END 2025-06-19 23:59 | disposition home or self-care (01) ==
LOC: LAB 12:22
PROVIDERS: PCP Physician Assistant; Visit Provider Student in an Organized Health Care Education/Training Program
DX: I10 Essential (primary) hypertension (principal)
CPT/HCPCS: 36415; 82088; 84244

== ENCOUNTER 2025-07-01 11:34 | Outpatient (CLI) | payer BC, SELFPAY ==
[2025-07-01 13:48] LABS: Free T4 (Free Thyroxine) 1.05 ng/dl (0.78-2.19)
[2025-07-01 14:04] LABS: Thyroid Stimulating Hormone 0.96 uIU/mL (0.465-4.68)
== END 2025-07-01 23:59 | disposition home or self-care (01) ==
LOC: LAB 11:35
PROVIDERS: PCP Physician Assistant; Visit Provider Student in an Organized Health Care Education/Training Program
DX: R94.6 Abnormal results of thyroid function studies (principal)
CPT/HCPCS: 36415; 84439; 84443